=== PATIENT | female | born 2000 | race Caucasian/White ===

== ENCOUNTER 2022-04-19 14:30 | Inpatient (IN) | payer OTHER ==
[~2022-04-19] VITALS: Ht 165.1 cm; Wt 97.3 kg
[2022-04-19] MEDS ORDERED: METO10TA2 PO (14:41)
[2022-04-19] MEDS ORDERED: HALO1TAB19 PO (14:41)
[2022-04-19] MEDS ORDERED: HYDR-3363 PO (14:41)
[2022-04-19] MEDS ORDERED: ONDA-83 PO (14:41)
[2022-04-19 15:31] LABS: HEMATOCRIT 39.8 % (36.0-47.0); HEMOGLOBIN 13.7 g/dl (12.0-15.5); MEAN CORPUSCULAR HEMOGLOBIN 29.1 pg (27.0-33.0); MEAN CORPUSCULAR HGB CONC 34.4 g/dl (32.0-36.5); MEAN CORPUSCULAR VOLUME 84.7 fl (80.0-96.0); PLATELET COUNT, AUTOMATED 307 10^3/uL (150-450); WHITE BLOOD COUNT 10.7 10^3/uL (4.0-10.0)
[2022-04-19 15:53] LABS: AMPHETAMINES LEVEL URINE NEGATIVE (NEGATIVE); BARBITURATES URINE NEGATIVE (NEGATIVE); BENZODIAZEPINES URINE NEGATIVE (NEGATIVE); CANNABINOIDS URINE POSITIVE (NEGATIVE); COCAINE METABOLITE URINE NEGATIVE (NEGATIVE); METHADONE URINE NEGATIVE (NEGATIVE); OPIATES URINE NEGATIVE (NEGATIVE); PHENCYCLIDINE URINE NEGATIVE (NEGATIVE); RSV AMPLIFICATION NEGATIVE (NEGATIVE)
[2022-04-19 15:59] LABS: HCG, SERUM QUALITATIVE NEGATIVE (NEGATIVE)
[2022-04-19 16:14] LABS: ACETAMINOPHEN LEVEL < 2.0 UG/ML (10.0-30.0); ALT/SGPT 33 U/L (12-78); BILIRUBIN,DIRECT 0.2 MG/DL (0.0-0.2); BILIRUBIN,TOTAL 1.1 MG/DL (0.2-1.0); BLOOD UREA NITROGEN 8 MG/DL (7-18); CALCIUM LEVEL 9.3 MG/DL (8.5-10.1); CARBON DIOXIDE LEVEL 20 MEQ/L (21-32); CHLORIDE LEVEL 111 MEQ/L (98-107); CREATININE FOR GFR 0.72 MG/DL (0.55-1.30); ETHYL ALCOHOL (ETHANOL) < 0.003 % (0.000-0.010); GLOMERULAR FILTRATION RATE > 60.0 (>60); GLUCOSE, FASTING 101 MG/DL (70-100); SALICYLATE LEVEL < 1.7 MG/DL (5.0-30.0); SODIUM LEVEL 140 MEQ/L (136-145); THYROID STIMULATING HORMONE 0.572 uIU/ML (0.358-3.740); TOTAL PROTEIN 7.9 GM/DL (6.4-8.2)
[2022-04-19] MEDS ORDERED: MED REC COMMENT (18:26)
[2022-04-19] MEDS ORDERED: HOME MED LIST COMPLETE! XX SCH (18:30)
[2022-04-19] MEDS ORDERED: METOCLOPRAMIDE 10MG TAB PO ONE (20:00)
[2022-04-19] MEDS ORDERED: MAALOX 30 ML SUSP *UDC PO PRN (20:10)
[2022-04-19] MEDS ORDERED: MOM 30ML SUSPENSION UDC PO PRN (20:10)
[2022-04-19] MEDS: traZODone 50 MG TAB PO PRN (22:23)
[2022-04-19] MEDS: OLANZapine ORAL DISINTEGRATING TAB 5MG PO PRN (22:23)
[2022-04-19 22:29] VITALS: BP 129/75
[2022-04-20 06:10] VITALS: BP 113/56
[2022-04-20] MEDS ORDERED: HOME MED LIST COMPLETE! XX SCH (08:40)
[2022-04-20] MEDS ORDERED: INFLUENZA QUADRIVALENT PF VACCINE 0.5ML SYRINGE IM.IMMUN ONE (09:00)
[2022-04-20] MEDS: SERTRALINE HCL 25 MG TABLET PO SCH (10:47)
[2022-04-20 16:09] VITALS: BP 126/60
[2022-04-20] MEDS: OLANZapine ORAL DISINTEGRATING TAB 5MG PO PRN (18:37)
[2022-04-20] MEDS: traZODone 50 MG TAB PO PRN (20:18)
[2022-04-20] MEDS: lamoTRIgine 25MG TAB PO SCH (20:19)
[2022-04-20] MEDS: ACETAMINOPHEN TAB 650MG DOSE (2X325MG) PO PRN (20:55)
[2022-04-20] MEDS ORDERED: OLANZapine ORAL DISINTEGRATING TAB 5MG PO ONE (21:50)
[2022-04-21] MEDS: OLANZapine ORAL DISINTEGRATING TAB 5MG PO PRN ×2 (09:02→21:29)
[2022-04-21] MEDS: SERTRALINE HCL 25 MG TABLET PO SCH (09:02)
[2022-04-21] MEDS: ONDANSETRON 4MG TAB PO PRN (10:38)
[2022-04-21] MEDS: LURASIDONE HCL 40MG TAB (LATUDA) PO SCH (12:40)
[2022-04-21 16:10] VITALS: BP 119/56
[2022-04-21] MEDS: lamoTRIgine 25MG TAB PO SCH (20:09)
[2022-04-21] MEDS: traZODone 50 MG TAB PO PRN (20:09)
[2022-04-22] MEDS: ACETAMINOPHEN TAB 650MG DOSE (2X325MG) PO PRN ×3 (00:38→20:09)
[2022-04-22 06:19] VITALS: BP 128/84
[2022-04-22] MEDS: LURASIDONE HCL 40MG TAB (LATUDA) PO SCH (08:41)
[2022-04-22] MEDS: SERTRALINE HCL 25 MG TABLET PO SCH (08:41)
[2022-04-22] MEDS: OLANZapine ORAL DISINTEGRATING TAB 5MG PO PRN ×2 (15:03→23:05)
[2022-04-22 16:12] VITALS: BP 114/58
[2022-04-22] MEDS: RAMELTEON 8 MG TAB (ROZEREM) PO SCH (20:08)
[2022-04-22] MEDS: lamoTRIgine 25MG TAB PO SCH (20:08)
[2022-04-22] MEDS: ONDANSETRON 4MG TAB PO PRN (20:15)
[2022-04-23] MEDS: CEPACOL LOZENGE PO PRN ×6 (01:24→22:28)
[2022-04-23] MEDS: ONDANSETRON 4MG TAB PO PRN ×2 (03:02→18:58)
[2022-04-23 06:00] VITALS: BP 116/68
[2022-04-23] MEDS: SERTRALINE HCL 25 MG TABLET PO SCH (08:45)
[2022-04-23] MEDS: LURASIDONE HCL 40MG TAB (LATUDA) PO SCH (08:45)
[2022-04-23] MEDS: OLANZapine ORAL DISINTEGRATING TAB 5MG PO PRN ×2 (12:47→21:53)
[2022-04-23 18:07] VITALS: BP 117/69
[2022-04-23] MEDS: ACETAMINOPHEN TAB 650MG DOSE (2X325MG) PO PRN (19:58)
[2022-04-23] MEDS: RAMELTEON 8 MG TAB (ROZEREM) PO SCH (20:00)
[2022-04-23] MEDS: lamoTRIgine 25MG TAB PO SCH (20:00)
[2022-04-24] MEDS: CEPACOL LOZENGE PO PRN (01:14)
[2022-04-24] MEDS: ONDANSETRON 4MG TAB PO PRN (01:56)
[2022-04-24 06:19] VITALS: BP 110/52
[2022-04-24] MEDS: SERTRALINE HCL 25 MG TABLET PO SCH (08:42)
[2022-04-24] MEDS: LURASIDONE HCL 40MG TAB (LATUDA) PO SCH (08:42)
[2022-04-24] MEDS ORDERED: SERT25TA21 PO (09:27)
[2022-04-24] MEDS ORDERED: LATU40TA2 PO ×2 (09:27→10:26)
[2022-04-24] MEDS ORDERED: RAME8TAB2 PO (09:27)
[2022-04-24] MEDS ORDERED: LAMI25TA PO ×2 (09:27→10:26)
[2022-04-24] MEDS ORDERED: SERT25TA85 PO (10:26)
[2022-04-24] MEDS ORDERED: ROZE8TAB16 PO (10:26)
== END 2022-04-24 10:21 | disposition home or self-care (01) | DRG 754 ==
LOC: M ED 14:30 → M ED INP 20:10 → M PSY 21:33
PROVIDERS: ADMIT Psychiatry & Neurology Psychiatry; ATTEND Psychiatry & Neurology Psychiatry
DX: F32.9 Major depressive disorder, single episode, unspecified (principal); R45.851 Suicidal ideations; F31.9 Bipolar disorder, unspecified; F12.10 Cannabis abuse, uncomplicated; Z91.52 Personal history of nonsuicidal self-harm; Z79.899 Other long term (current) drug therapy; F84.0 Autistic disorder; Z91.048 Other nonmedicinal substance allergy status; F60.3 Borderline personality disorder; Z91.51 Personal history of suicidal behavior

== ENCOUNTER → 2022-08-10 | Outpatient (REF) | payer OTHER ==
[~2022-08-10] MED LIST: HALO1TAB19 PO; HYDR-3363 PO; LAMI25TA PO; LATU40TA2 PO; MED REC COMMENT; METO10TA2 PO; ONDA-83 PO; RAME8TAB2 PO; ROZE8TAB16 PO; SERT25TA21 PO; SERT25TA85 PO
[2022-08-10 14:48] LABS: APPEARANCE, URINE MANUAL CLEAR (CLEAR); BILIRUBIN, URINE MANUAL NEGATIVE (NEGATIVE); BLOOD URINE MANUAL NEGATIVE (NEGATIVE); COLOR, URINE MANUAL YELLOW (YELLOW); GLUCOSE, URINE (UA) MANUAL NEGATIVE (NEGATIVE); KETONE, URINE MANUAL NEGATIVE (NEGATIVE); LEUKOCYTE ESTERASE, URINE MAN NEGATIVE (NEGATIVE); NITRITE, URINE MANUAL NEGATIVE (NEGATIVE); PROTEIN, URINE MANUAL NEGATIVE (NEGATIVE); UROBILINOGEN, URINE MANUAL NORMAL (NORMAL)
== END ==
LOC: M SMT 12:55
PROVIDERS: ATTEND Specialist
DX: R39.14 Feeling of incomplete bladder emptying (principal)

== ENCOUNTER 2022-09-16 13:33 | Inpatient (IN) | payer OTHER ==
[~2022-09-16] VITALS: Ht 165.1 cm; Wt 104.5 kg
[2022-09-16] MEDS ORDERED: ZOLO100T PO ×2 (14:12→20:40)
[2022-09-16 14:51] LABS: HEMATOCRIT 42.6 % (36.0-47.0); HEMOGLOBIN 14.1 g/dl (12.0-15.5); MEAN CORPUSCULAR HEMOGLOBIN 28.3 pg (27.0-33.0); MEAN CORPUSCULAR HGB CONC 33.1 g/dl (32.0-36.5); MEAN CORPUSCULAR VOLUME 85.5 fl (80.0-96.0); PLATELET COUNT, AUTOMATED 239 10^3/uL (150-450); RED BLOOD COUNT 4.98 10^6/uL (4.00-5.40); WHITE BLOOD COUNT 7.9 10^3/uL (4.0-10.0)
[2022-09-16] MEDS ORDERED: LORazepam 1 MG TAB PO STA ×2 (15:17→20:14)
[2022-09-16 15:18] LABS: ETHYL ALCOHOL (ETHANOL) 0.005 % (0.000-0.010)
[2022-09-16 15:20] LABS: SALICYLATE LEVEL < 3.0 MG/DL (<30)
[2022-09-16] MEDS ORDERED: ONDANSETRON 4MG ORAL DISINTEGRATING TAB PO ONE (15:20)
[2022-09-16 15:21] LABS: ACETAMINOPHEN LEVEL < 2.0 UG/ML (10.0-20.0); ALBUMIN 3.9 G/DL (3.2-5.2); ALKALINE PHOSPHATASE 71 U/L (46-116); ALT/SGPT 40 U/L (7.0-40); AST/SGOT 29 U/L (<34); BILIRUBIN,DIRECT 0.3 MG/DL (<0.4); BILIRUBIN,TOTAL 0.8 MG/DL (0.3-1.2); BLOOD UREA NITROGEN 7 MG/DL (9-23); CALCIUM LEVEL 8.8 MG/DL (8.5-10.1); CARBON DIOXIDE LEVEL 24 MMOL/L (20-31); CHLORIDE LEVEL 109 MMOL/L (98-107); CREATININE FOR GFR 0.71 MG/DL (0.55-1.30); GLOMERULAR FILTRATION RATE > 60.0 (>60); GLUCOSE, FASTING 87 MG/DL (60-100); POTASSIUM SERUM 4.1 MMOL/L (3.5-5.1); SODIUM LEVEL 140 MMOL/L (136-145); TOTAL PROTEIN 7.6 G/DL (5.7-8.2)
[2022-09-16 15:23] LABS: HCG, SERUM QUALITATIVE NEGATIVE (NEGATIVE); THYROID STIMULATING HORMONE 1.789 uIU/ML (0.55-4.78)
[2022-09-16 15:43] LABS: AMPHETAMINES LEVEL URINE NEGATIVE (NEGATIVE); BARBITURATES URINE NEGATIVE (NEGATIVE); BENZODIAZEPINES URINE NEGATIVE (NEGATIVE); COCAINE METABOLITE URINE NEGATIVE (NEGATIVE); PHENCYCLIDINE URINE NEGATIVE (NEGATIVE)
[2022-09-16 15:44] LABS: METHADONE URINE NEGATIVE (NEGATIVE); OPIATES URINE NEGATIVE (NEGATIVE)
[2022-09-16 15:47] LABS: CANNABINOIDS URINE POSITIVE (NEGATIVE)
[2022-09-16] MEDS ORDERED: IBUPROFEN 400MG TAB PO PRN (18:40)
[2022-09-16] MEDS ORDERED: OLANZapine ORAL DISINTEGRATING TAB 5MG PO PRN (18:40)
[2022-09-16] MEDS ORDERED: MAALOX 30 ML SUSP *UDC PO PRN (18:40)
[2022-09-16] MEDS ORDERED: MOM 30ML SUSPENSION UDC PO PRN (18:40)
[2022-09-16] MEDS ORDERED: HYDR-3363 PO (20:40)
[2022-09-16] MEDS ORDERED: METO5TAB2 PO (20:40)
[2022-09-16] MEDS ORDERED: OMEP-173 PO (20:40)
[2022-09-16] MEDS ORDERED: OXYB-54 PO (20:40)
[2022-09-16] MEDS ORDERED: LAMO25TA4 PO (20:40)
[2022-09-16] MEDS ORDERED: ONDA4TAB6 PO (20:40)
[2022-09-16] MEDS ORDERED: PHEN1TAB73 PO (20:40)
[2022-09-16] MEDS ORDERED: LATU40TA2 PO (20:40)
[2022-09-16] MEDS ORDERED: HOME MED LIST COMPLETE! XX SCH (20:45)
[2022-09-16] MEDS ORDERED: RAMELTEON 8 MG TAB (ROZEREM) PO SCH (21:00)
[2022-09-16 21:26] VITALS: BP 119/58
[2022-09-16] MEDS: traZODone 50 MG TAB PO PRN (23:09)
[2022-09-16] MEDS: LURASIDONE HCL 40MG TAB (LATUDA) PO SCH (23:09)
[2022-09-17 06:51] VITALS: BP 117/66
[2022-09-17 08:28] LABS: CHOLESTEROL RISK RATIO 5.07 (<5); HDL CHOLESTEROL 28.4 MG/DL (>40); LDL CHOLESTEROL 85.6 MG/DL (<100); NON-HDL-C 115.6 MG/DL
[2022-09-17] MEDS ORDERED: METO5TAB2 PO (08:33)
[2022-09-17] MEDS ORDERED: SERTRALINE HCL 25 MG TABLET PO SCH (09:00)
[2022-09-17] MEDS: SERTRALINE 100 MG TAB PO SCH (09:37)
[2022-09-17] MEDS: lamoTRIgine 25MG TAB PO SCH (09:37)
[2022-09-17] MEDS ORDERED: ONDANSETRON 4MG ORAL DISINTEGRATING TAB PO PRN (13:00)
[2022-09-17] MEDS: LURASIDONE HCL 40MG TAB (LATUDA) PO SCH (17:15)
[2022-09-17 18:13] VITALS: BP 121/71
[2022-09-17] MEDS: traZODone 50 MG TAB PO PRN (20:16)
[2022-09-17] MEDS ORDERED: PINK BISMUTH SUSP 524MG/30ML ORAL SYRINGE PO ONE (21:00)
[2022-09-18 06:36] VITALS: BP 108/54
[2022-09-18] MEDS: lamoTRIgine 25MG TAB PO SCH (09:21)
[2022-09-18] MEDS: SERTRALINE 100 MG TAB PO SCH (09:22)
[2022-09-18] MEDS ORDERED: LATU40TA2 PO (10:23)
[2022-09-18] MEDS ORDERED: ZOLO100T PO (10:23)
[2022-09-18] MEDS ORDERED: HYDR-3363 PO (10:23)
[2022-09-18] MEDS ORDERED: LAMO25TA4 PO (10:23)
== END 2022-09-18 16:10 | disposition home or self-care (01) | DRG 751 ==
LOC: M ED 13:33 → M ED INP 18:36 → M PSY 21:01
PROVIDERS: ADMIT Student in an Organized Health Care Education/Training Program; ATTEND Psychiatry & Neurology Psychiatry
DX: F33.1 Major depressive disorder, recurrent, moderate (principal); R45.851 Suicidal ideations; K76.0 Fatty (change of) liver, not elsewhere classified; F60.3 Borderline personality disorder; F12.188 Cannabis abuse with other cannabis-induced disorder; Z81.8 Family history of other mental and behavioral disorders; Z91.52 Personal history of nonsuicidal self-harm; Z79.899 Other long term (current) drug therapy; Z91.048 Other nonmedicinal substance allergy status; R11.2 Nausea with vomiting, unspecified; F84.0 Autistic disorder; Z91.51 Personal history of suicidal behavior

== ENCOUNTER 2022-09-22 13:10 | Inpatient (IN) | payer OTHER ==
[~2022-09-22] VITALS: Ht 167.6 cm; Wt 105.5 kg
[~2022-09-22 13:10] MED LIST changes: +LAMO25TA4 PO; +METO5TAB2 PO; +OMEP-173 PO; +ONDA4TAB6 PO; +OXYB-54 PO; +PHEN1TAB73 PO; +ZOLO100T PO
[2022-09-22 14:17] LABS: HEMATOCRIT 38.7 % (36.0-47.0); MEAN CORPUSCULAR HEMOGLOBIN 28.4 pg (27.0-33.0); MEAN CORPUSCULAR HGB CONC 33.6 g/dl (32.0-36.5); MEAN CORPUSCULAR VOLUME 84.5 fl (80.0-96.0); PLATELET COUNT, AUTOMATED 250 10^3/uL (150-450); RED BLOOD COUNT 4.58 10^6/uL (4.00-5.40); WHITE BLOOD COUNT 6.5 10^3/uL (4.0-10.0)
[2022-09-22 14:24] LABS: ETHYL ALCOHOL (ETHANOL) < 0.003 % (0.000-0.010)
[2022-09-22 14:25] LABS: ACETAMINOPHEN LEVEL < 2.0 UG/ML (10.0-20.0); AMPHETAMINES LEVEL URINE NEGATIVE (NEGATIVE); BARBITURATES URINE NEGATIVE (NEGATIVE); BENZODIAZEPINES URINE NEGATIVE (NEGATIVE); COCAINE METABOLITE URINE NEGATIVE (NEGATIVE); METHADONE URINE NEGATIVE (NEGATIVE); OPIATES URINE NEGATIVE (NEGATIVE); PHENCYCLIDINE URINE NEGATIVE (NEGATIVE)
[2022-09-22 14:26] LABS: CANNABINOIDS URINE POSITIVE (NEGATIVE)
[2022-09-22 14:31] LABS: ALBUMIN 3.9 G/DL (3.2-5.2); ALKALINE PHOSPHATASE 70 U/L (46-116); ALT/SGPT 101 U/L (7.0-40); AST/SGOT 50 U/L (<34); BILIRUBIN,DIRECT 0.3 MG/DL (<0.4); BILIRUBIN,TOTAL 0.9 MG/DL (0.3-1.2); BLOOD UREA NITROGEN 5 MG/DL (9-23); CALCIUM LEVEL 9.1 MG/DL (8.5-10.1); CARBON DIOXIDE LEVEL 25 MMOL/L (20-31); CHLORIDE LEVEL 107 MMOL/L (98-107); GLOMERULAR FILTRATION RATE > 60.0 (>60); GLUCOSE, FASTING 93 MG/DL (60-100); POTASSIUM SERUM 3.3 MMOL/L (3.5-5.1); SALICYLATE LEVEL < 3.0 MG/DL (<30); SODIUM LEVEL 139 MMOL/L (136-145); THYROID STIMULATING HORMONE 0.383 uIU/ML (0.55-4.78); TOTAL PROTEIN 7.3 G/DL (5.7-8.2)
[2022-09-22] MEDS ORDERED: ACETAMINOPHEN TAB 650MG DOSE (2X325MG) PO ONE ×2 (15:35→20:00)
[2022-09-22 16:47] LABS: HCG, SERUM QUALITATIVE NEGATIVE (NEGATIVE)
[2022-09-22] MEDS ORDERED: LAMO25TA4 PO (18:12)
[2022-09-22] MEDS ORDERED: LURA40TA2 PO (18:12)
[2022-09-22] MEDS ORDERED: HYDR-3363 PO (18:12)
[2022-09-22] MEDS ORDERED: REGL5TAB2 PO (18:15)
[2022-09-22] MEDS ORDERED: ZOLO100T PO (18:15)
[2022-09-22] MEDS ORDERED: HOME MED LIST COMPLETE! XX SCH (18:15)
[2022-09-22] MEDS ORDERED: LATU40TA2 PO (18:15)
[2022-09-22] MEDS ORDERED: lamoTRIgine 25MG TAB PO SCH (21:00)
[2022-09-22] MEDS ORDERED: LURASIDONE HCL 40MG TAB (LATUDA) PO SCH (21:00)
[2022-09-23] MEDS: NICOTINE 21MG/24HR 1 EA TRANSDERMAL TD SCH (09:00)
[2022-09-23] MEDS ORDERED: OMEPRAZOLE 20MG CAP PO SCH (09:00)
[2022-09-23] MEDS ORDERED: SERTRALINE 100 MG TAB PO SCH (09:00)
[2022-09-23] MEDS ORDERED: oxyBUTYnin *DITROPAN XL* 5 MG TABCR PO SCH (09:00)
[2022-09-23] MEDS ORDERED: MOM 30ML SUSPENSION UDC PO PRN (12:05)
[2022-09-23] MEDS ORDERED: MAALOX 30 ML SUSP *UDC PO PRN (12:05)
[2022-09-23 14:57] VITALS: BP 100/50
[2022-09-23] MEDS ORDERED: LURASIDONE HCL 40MG TAB (LATUDA) PO SCH ×2 (18:00→21:00)
[2022-09-23] MEDS: lamoTRIgine 25MG TAB PO SCH (18:23)
[2022-09-23] MEDS: METOCLOPRAMIDE 5 MG TAB PO SCH (18:23)
[2022-09-23] MEDS: OLANZapine ORAL DISINTEGRATING TAB 5MG PO PRN (18:45)
[2022-09-23 20:00] VITALS: BP 132/81
[2022-09-23] MEDS: hydrOXYzine 50 MG TAB PO PRN (20:28)
[2022-09-23] MEDS: traZODone 50 MG TAB PO PRN (20:29)
[2022-09-23] MEDS: IBUPROFEN 400MG TAB PO PRN (20:30)
[2022-09-23] MEDS ORDERED: POTASSIUM CHLORIDE 10MEQ SR TABLET PO ONE (20:45)
[2022-09-23] MEDS ORDERED: lamoTRIgine 25MG TAB PO SCH (21:00)
[2022-09-23] MEDS ORDERED: METOCLOPRAMIDE 5 MG TAB PO SCH (21:00)
[2022-09-24] MEDS: METOCLOPRAMIDE 5 MG TAB PO SCH ×2 (07:57→18:03)
[2022-09-24] MEDS: SERTRALINE 100 MG TAB PO SCH (07:58)
[2022-09-24] MEDS: OMEPRAZOLE 20MG CAP PO SCH (07:58)
[2022-09-24] MEDS: NICOTINE 21MG/24HR 1 EA TRANSDERMAL TD SCH (08:00)
[2022-09-24] MEDS: hydrOXYzine 50 MG TAB PO PRN ×2 (08:42→20:53)
[2022-09-24] MEDS ORDERED: INFLUENZA QUADRIVALENT PF VACCINE 0.5ML SYRINGE IM.IMMUN ONE (09:00)
[2022-09-24] MEDS ORDERED: LURASIDONE HCL 40MG TAB (LATUDA) PO SCH ×2 (09:00→18:00)
[2022-09-24 10:31] LABS: ALBUMIN 3.7 G/DL (3.2-5.2); ALKALINE PHOSPHATASE 72 U/L (46-116); ALT/SGPT 97 U/L (7.0-40); AST/SGOT 49 U/L (<34); BILIRUBIN,DIRECT 0.3 MG/DL (<0.4); BILIRUBIN,TOTAL 0.9 MG/DL (0.3-1.2); FREE T4 1.13 NG/DL (0.89-1.76); TOTAL PROTEIN 7.2 G/DL (5.7-8.2)
[2022-09-24 10:46] LABS: HEPATITIS B SURFACE ANTIGEN NEGATIVE (NEGATIVE)
[2022-09-24] MEDS: OLANZapine ORAL DISINTEGRATING TAB 5MG PO PRN ×2 (10:53→16:26)
[2022-09-24 11:06] LABS: HEPATITIS B CORE ANTIBODY IGM NEGATIVE (NEGATIVE)
[2022-09-24 11:07] LABS: HEPATITIS C VIRUS ABY INDEX 0.1 INDEX (<0.8)
[2022-09-24] MEDS: oxyBUTYnin *DITROPAN XL* 5 MG TABCR PO SCH (11:47)
[2022-09-24] MEDS: MUPIROCIN 2% OINT 22 GM TUBE TOP SCH ×2 (13:55→20:52)
[2022-09-24 17:13] VITALS: BP 150/80
[2022-09-24] MEDS: lamoTRIgine 25MG TAB PO SCH (18:03)
[2022-09-24] MEDS: IBUPROFEN 400MG TAB PO PRN (18:04)
[2022-09-24] MEDS: traZODone 50 MG TAB PO PRN (20:52)
[2022-09-25] MEDS: IBUPROFEN 400MG TAB PO PRN (03:36)
[2022-09-25] MEDS: OLANZapine ORAL DISINTEGRATING TAB 5MG PO PRN (07:33)
[2022-09-25] MEDS: NICOTINE 21MG/24HR 1 EA TRANSDERMAL TD SCH (07:50)
[2022-09-25] MEDS: MUPIROCIN 2% OINT 22 GM TUBE TOP SCH (07:53)
[2022-09-25] MEDS: oxyBUTYnin *DITROPAN XL* 5 MG TABCR PO SCH (07:53)
[2022-09-25] MEDS: OMEPRAZOLE 20MG CAP PO SCH (07:53)
[2022-09-25] MEDS: METOCLOPRAMIDE 5 MG TAB PO SCH (07:53)
[2022-09-25] MEDS: SERTRALINE 100 MG TAB PO SCH (07:53)
[2022-09-25] MEDS ORDERED: TRAZ-252 PO (08:27)
[2022-09-25] MEDS ORDERED: OLAN5ZYD PO (08:27)
[2022-09-25] MEDS ORDERED: LATU40TA2 PO (08:27)
== END 2022-09-25 14:07 | disposition home or self-care (01) | DRG 751 ==
LOC: M ED 13:10 → M ED INP 09-23 12:01 → M PSY 09-23 15:10
PROVIDERS: ADMIT Student in an Organized Health Care Education/Training Program; ATTEND Student in an Organized Health Care Education/Training Program
DX: F33.1 Major depressive disorder, recurrent, moderate (principal); R45.851 Suicidal ideations; F84.0 Autistic disorder; F60.3 Borderline personality disorder; N93.9 Abnormal uterine and vaginal bleeding, unspecified; Z91.51 Personal history of suicidal behavior; Z81.8 Family history of other mental and behavioral disorders; Z79.899 Other long term (current) drug therapy; Z91.048 Other nonmedicinal substance allergy status; Z56.0 Unemployment, unspecified